=== PATIENT | female | born 1950 | race Caucasian/White ===

== ENCOUNTER 2024-05-04 14:34 | Outpatient (REF) | payer MEDICARE, SELFPAY ==
[2024-05-04 16:12] LABS: Erythrocyte Sedimentation Rate 6 MM/HR (0-20)
--- OUTSIDE RECORDS SUMMARY | 2024-05-04 17:20 | XMS_ITS | Continuity of Care Document ---
Author Organization [place] - [facility], [facility] Address [address] [place] [address] Care Team Providers Care Lead Radiation Therapist Name Role Phone KONSTANTIN, MAURA Primary Care Provider Assessment No assessment recorded. Plan of Treatment Reminders Order Date Submit Date Provider Last Modified By Organization Details Last Modified Time Details Appointments None record ed. Lab None record ed. Referral None record ed. Procedures None record ed. Surgeries None record ed. Imaging None record ed. Medication Orders None record ed. Patient TargetsNo targets recorded. Patient InstructionsNo instructions recorded. Reason for Referral None Reported. Results Created Date Observation Date Name Description Value Unit Range Abnormal Flag Note LastModifiedBy Organization Detail LastModifiedTime 03/24/2001/31/2024 MRI, brain , w/o contr ast No observ ation record ed. [email or web address] Not Available 2023 09:39:04 03/24/2002/10/2022 CT, face, w/o contr ast No observ ation record ed. [email or web address] Not Available 2023 09:39:38 Result Notes None recorded. Problems Name Problem SNOMED Code Status Onset Date Resolution Date Notes Provider Name and Address Organization Details Recorded Time Nasal congestio n 91604673 Active 2023 Nasal congestio n; Note: Date Diagnosed : 05/08/2023 1:40 PM (R09.81) Not Available [facility] 02:31:12 Bilateral disorder of Eustachia n tubes 88919773660 66500 Active 2023 Other specified disorders of Eustachia n tube, bilateral ; Note: Date Diagnosed : 05/08/2023 1:40 PM (H69.83) Not Available [facility] 02:31:14 Seasonal allergic rhinitis 876321658 Active 2023 DAKOTAH CONROY MD [address] [place] [address], [place], [address] , [place] - [facility] 09:00:10 Problem Notes None recorded. Medical Equipment None Reported. Medications Name Sig Start Date Stop Date Status Note LastModified by Organization Details LastModified Time trazodone 50 mg tablet active Medication ID: [id number] Bra nd Name: trazodone Send Method: E-Prescrib ed Subs Allowed: subs OK Special Instructio n: TAKE 1/2 TABLET BY MOUTH AT BEDTIME NEEDED Med icationGen ericName: trazodone Not Available Not Available Not Available gabapentin 100 mg capsule TAKE ONE CAPSULE BY MOUTH EVERY DAY IN THE EVENING active Not Available Not Available No t Available fluticason e propionate 50 mcg/actuat ion nasal spray,susp ension SPRAY 1 SPRAY INTO EACH NOSTRIL DAILY. active Not Available Not Available No t Available Vitals Date Recorded Body height Body mass index (BMI) Body weight Provider Name and Address Organization Details Last Updated DateTime 03/11/2024 165.1 cm 18.5 kg/m2 26488.75 g Ana Paula Tapia [place] [facility] 03/11/2024 08:44:31 Social History None recorded. Functional Status None recorded. Mental Status None recorded. Family History Nothing Reported. Medical History No medical history recorded. Gynecological HistoryNo gynecological history recorded. Obstetrics History GPAL:G 0 P 0 0 0 0 Past Encounters Encounter ID Performer Location Encounter Start Date Encounter Closed Date Diagnosis/Indication Diagnosis SNOMED-CT Code Diagnosis ICD10 Code Diagnosis Note [id number] DAKOTAH CONROY MD [facility] on [address] [place] [address] 03/11/2024 08:34:01 03/11/2024 09:12:40 Nasal congestion 38514324 R09.81 see below, likely due to allergies. I reviewed her recent MRI which did not show clinically significan t sinus disease on my reivew. Seasonal a llergic rhinitis 288962434 J30.2 discussed cross hand technique for flonase. She can use flonase and azelastine . Bilateral disorder of Eustachian tubes 0722691464 259688 H69.93 I told her we can review her audiogram if she brings it. I also suggested using nasal sprays as above may decongest around the eustachian tube opening giving relief. Health Concerns Section Related Observation LastModified by Organization Detai ls LastModified Time None Recorded Concern Status LastModified by Organization Details LastModified Time None Recorded Payers Encounter Date Sequence Insurance Name Policy Number Policy Asencio Covered Member ID Asencio Member ID Guarantor Name 03/11/2024 1 [facility] (MEDICARE REPLACEMENT/A DVANTAGE - HMO) [id number] Kaye Adhikari [id number] Kaye Adhikari Notes Date Note Type Note Provider Name and Address Organization Details Recorded Time 03/11/2024 text/html For years she chan s had nasal congestion at night. Since she moved to [place] 3 years ago her allergies have been worse. She has been receiving SCIT at [facility] for 2 years with some benefit. She notes her symptoms are worse with ragweed. When her allergies bother her she feels as if she has brain fog. She had a brain MRI 02/10 which did not show tumors. It showed scattered mucosal thickening in her sinuses. She reports congestion at night with frontal headache. Flonase does help but she stopped due to epistaxis. She reports both ears feel blocked and she has a history of ETD and uses an ear popper. DAKOTAH CONROY MD [address] [place] [address], [place], [address], [facility] - [facility] 03/11/2024 09:11:46 OBGyn Episode No OBEpisode recorded.
--- OUTSIDE RECORDS SUMMARY | 2024-05-04 17:20 | XMS_ITS | Data Portability ---
Author Organization [place] - [facility], Allergy Address [address] [address] Care Team Providers Care Scorekeeper Name Role Phone MAURA PRYOR Primary Care Provider Assessment No assessment recorded. [...] record ed. [email or web address] Not Available 2023 09:39:04 03/24/20 24 02/10/2022 CT, face, w/o contr ast No observ ation record ed. [email or web address] Not Available 2023 09:39:38 Result Notes None recorded. Problems Name Problem SNOMED Code Status Onset Date Resolution Date Notes Provider Name and Address Organization Details Recorded Time Nasal congestio n 37338256 Active 2023 Nasal congestio n; Note: Date Diagnosed : 05/08/2023 1:40 PM (R09.81) Not Available [facility] Bilateral disorder of Eustachia n tubes 13257498861 32660 Active 2023 Other specified disorders of Eustachia n tube, bilateral ; Note: Date Diagnosed : 05/08/2023 1:40 PM (H69.83) Not Available [facility] Seasonal allergic rhinitis 353808496 Active 2023 DAKOTAH CONROY MD [address] [place] [address], [facility] [place], [address] , [place] - [facility] [place] 09:00:10 Problem Notes None recorded. Procedures Surgical History None recorded. Imaging Results Imaging Date Name Status LastModified by Organiz ation Details LastModified Time 01/31/2024 MRI, brain, w/o contrast completed [email or web address] Information not available 03/24/2024 09:39:04 02/10/2022 CT[email or web address] Information not available 03/24/2024 09:39:38 Procedure Notes None recorded. Medical Equipment None Reported. Medications Name Sig Start Date Stop Date Status Note LastModified by Organization Details LastModified Time trazodone 50 mg tablet active Medication ID: [id number] Bra nd Name: trazodone Send Method: E-Prescrib [...] Updated DateTime 03/11/2024 165.1 cm 18.5 kg/m2 73493.75 g Ana Paula Tapia [place] - [facility] 03/11/2024 08:44:31 Social History None recorded. Functional Status None recorded. Mental Status None recorded. Family History Nothing Reported. Medical History No medical history recorded. Gynecological HistoryNo gynecological history recorded. Obstetrics History GPAL:G 0 P 0 0 0 0 Past Encounters Encounter ID Performer Location Encounter Start Date Encounter Closed Date Diagnosis/Indication Diagnosis SNOMED-CT Code Diagnosis ICD10 Code Diagnosis Note [id number] DAKOTAH CONROY MD [facility] on [address] [facility] [address] 03/11/2024 08:34:01 03/11/2024 09:12:40 Nasal congestion 21987190 R09.81 see below, likely due to allergies. I reviewed her recent MRI which did not show clinically significan t sinus disease on my reivew. Seasonal a llergic rhinitis 587655575 J30.2 discussed cross hand technique for flonase. She can use flonase and azelastine . Bilateral disorder of Eustachian tubes 2263951661 807738 H69.93 I told her we can review her audiogram if she brings it. I also suggested using nasal sprays as above may decongest around the eustachian tube opening giving relief. Health Concerns Section Related Observation LastModified by Organization Detai ls LastModified Time None Recorded Concern Status LastModified by Organization Details LastModified Time None Recorded Advance Directives Directive None Recorded Payers Encounter Date Sequence Insurance Name Policy Number Policy Asencio Covered Member ID Asencio Member ID Guarantor Name 03/11/2024 1 [facility] (MEDICARE REPLACEMENT/A DVANTAGE - HMO) [id number] Kaye Adhikari [id number] Kaye Adhikari Notes Date Note Type Note Provider Name and Address Organization Details Recorded Time 03/11/2024 text/html For years she chan s had nasal congestion at night. Since she moved to [place] 3 years ago her allergies have been worse. She has been receiving SCIT at [facility] for 2 years with some benefit. She [...] uses an ear popper. DAKOTAH CONROY MD [address] [place] [address], [place], [address], [facility] - [facility] 03/11/2024 09:11:46 OBGyn Episode No OBEpisode recorded.
[2024-05-05 23:27] LABS: Lyme Blot 1.25 index
[2024-05-06 14:37] LABS: Anti Nuclear Antibody Screen NEGATIVE (NEGATIVE)
[2024-05-09 08:30] LABS: Lyme Abs Screen POSITIVE
[2024-05-09 22:29] LABS: 18 KD (IgG) Band NON-REACTIVE; 23 KD (IgG) Band NON-REACTIVE; 23 KD (IgM) Band REACTIVE; 28 KD (IgG) Band NON-REACTIVE; 30 KD (IgG) Band NON-REACTIVE; 39 KD (IgM) Band NON-REACTIVE; 39KD (IgG) Band NON-REACTIVE; 41 KD (IgM) Band NON-REACTIVE; 41KD (IgG) Band REACTIVE; 45 KD (IgG) Band NON-REACTIVE; 58 KD (IgG) Band REACTIVE; 66 KD (IgG) Band NON-REACTIVE; 93 KD (IgG) Band NON-REACTIVE; Lyme IgG Blot Interp NEGATIVE (NEGATIVE); Lyme IgM Blot Interp NEGATIVE (NEGATIVE)
== END 2024-05-04 14:35 | disposition home or self-care (01) ==
LOC: HO.LAB 14:34
PROVIDERS: PCP Registered Nurse; Visit Provider Psychiatry & Neurology Neurology
DX: I67.9 Cerebrovascular disease, unspecified (principal)
CPT/HCPCS: 36415; 85652; 86038; 86617; 86618